=== PATIENT | female | born 1975 | race African-American/Black ===

== ENCOUNTER → 2018-02-08 | Outpatient (CLI) | payer BC ==
--- NOTE | 2018-02-08 12:02 | RAD ---
Pelvis with both hips, 5 views, 02/08/2018: HISTORY: Low back and hip pain No fracture or dislocation is identified. The hip joint spaces are well-maintained with only minimal marginal spurring. The periarticular soft tissues are unremarkable. IMPRESSION: 1. Minimal spurring at the hip joints. 2. No acute abnormality is detected. Electronically signed by: Andrew Arciniega MD (02/08/2018 11:59 AM) [facility]
--- NOTE | 2018-02-08 12:06 | RAD ---
Lumbar spine, 3 views, 02/08/2018: HISTORY: Low back pain Small accessory ribs are present at L1. The lumbar vertebral heights are well-maintained. No fracture is identified. There is minimal disc space narrowing and posterior spurring at L5-S1. There appear to be mild sclerotic changes involving the facet joints with minimal retrolisthesis at L5-S1. The other intervertebral disc spaces are well-maintained. IMPRESSION: 1. Mild degenerative change at L5-S1. 2. No acute abnormality is detected. Electronically signed by: Andrew Arciniega MD (02/08/2018 12:03 PM) [facility]
--- NOTE | 2018-02-08 12:16 | RAD ---
Complete abdominal ultrasound 02/08/2018 9:36 AM Clinical History: Abdominal pain Technique: Ultrasound examination of the abdomen was performed, and multiple static images were submitted for review. Comparison: None available Findings: The visualized portions of the pancreas are within normal limits. The visualized aorta and IVC are unremarkable. The gallbladder is normal in appearance without wall thickening, stones, or sludge. No pericholecystic fluid is seen. Sonographic Quinonez's sign is negative. The common bile duct measures 3 mm in diameter which is within normal limits. The liver measures 16 cm longitudinally. Liver is diffusely hyperechoic suggesting hepatic steatosis. No intrahepatic biliary ductal dilatation is seen. No focal hepatic lesions are identified. The spleen is normal in appearance measuring 8.3 cm. The bilateral kidneys are normal in appearance without evidence of obstructive uropathy, nephrolithiasis, or focal renal lesion. Right kidney measures 9.2 cm in length. Left kidney measures 9.0 cm in length. Impression: 1. Probable hepatic steatosis 2. Otherwise unremarkable abdominal ultrasound. Electronically signed by: Thierno Wilhelm MD (02/08/2018 12:13 PM) [email or web address]
--- NOTE | 2018-02-08 13:16 | RAD ---
Pelvic ultrasound, 02/08/2018: HISTORY: Groin pain Transabdominal scans were obtained. The patient refused transvaginal scanning. The uterus measures 11 x 4.3 x 6.9 cm. Multiple small nabothian cysts are present. The central uterine echo complex measures 10 mm in AP dimension. The myometrial echo pattern is heterogeneous with a probable isoechoic nodule evident within the right side of the uterus. Its margins are not clearly defined. It was estimated to measure 4.8 x 3.6 x 3.6 cm. The ovaries are of normal size. Blood flow is present in the ovaries. No adnexal mass is seen. No free fluid is evident in the pelvis. IMPRESSION: 1. Small nabothian cysts in the cervix. 2. Probable right uterine fibroid. 3. No adnexal abnormality is detected. Electronically signed by: Andrew Arciniega MD (02/08/2018 1:13 PM) [facility]
== END | disposition home or self-care (01) ==
LOC: US 09:00
PROVIDERS: ATTEND Family Medicine
DX: Z12.31 Encounter for screening mammogram for malignant neoplasm of breast (principal); N88.8 Other specified noninflammatory disorders of cervix uteri; M48.07 Spinal stenosis, lumbosacral region
CPT/HCPCS: 72100; 73521; 76700; 76856; 77063; 77067